=== PATIENT | male | born 1995 | race Native Hawaiian/Other Pacific Islander ===

== ENCOUNTER 2017-11-10 14:43 | Emergency (ER) | payer OTHER ==
[~2017-11-10] VITALS: Ht 170.2 cm; Wt 95.3 kg
[2017-11-10] MEDS ORDERED: KEPPRA1000 MG PO (14:57)
[2017-11-10 15:47] LABS: PLATELET COUNT 235 K/uL (142-355)
[2017-11-10 16:04] LABS: POTASSIUM 3.2 mmol/L (3.6-5.2)
== END 2017-11-10 16:50 | disposition home or self-care (01) ==
LOC: ED 14:43
PROVIDERS: Emergency Medicine
DX: J40 Bronchitis, not specified as acute or chronic (principal)
CPT/HCPCS: 80053; 85027; 87081; 87804; 87880; 99283